=== PATIENT | female | born 1970 | race Caucasian/White ===

== ENCOUNTER → 2018-01-29 | Outpatient (CLI) | payer BC ==
--- NOTE | 2018-01-29 08:02 | MM ---
Reason for exam: additional evaluation requested from abnormal screening. Last mammogram was performed less than 1 month ago. History: Family history of breast cancer in paternal aunt. Took hormonal contraceptives for 1 year. Physical Findings: Nurse did not find any significant physical abnormalities on exam. MG Work Up Mamm w CAD RT Spot compression CC, spot compression MLO, and LM view(s) were taken of the right breast. Prior study comparison: January 18, 2018, bilateral MG screening mammo w CAD. February 05, 2013, bilateral digital screening mammo w/CAD. The breast tissue is heterogeneously dense. This may lower the sensitivity of mammography. Right superior middle depth asymmetry improves on additional views and appears as surrounding fibroglandular tissue. These results were verbally communicated with the patient and result sheet given to the patient on 01/29/18. ASSESSMENT: Negative, BI-RAD 1 RECOMMENDATION: Return to routine screening mammogram schedule for both breasts.
== END | disposition home or self-care (01) ==
LOC: RADMAMWWP 07:09
PROVIDERS: ATTEND Obstetrics & Gynecology
DX: R92.8 Other abnormal and inconclusive findings on diagnostic imaging of breast (principal)
CPT/HCPCS: 77065

== ENCOUNTER → 2019-06-28 | Outpatient (CLI) | payer BC ==
--- NOTE | 2019-07-02 08:20 | MM ---
Reason for exam: screening (asymptomatic). Last mammogram was performed 1 year and 5 months ago. History: Family history of breast cancer in paternal aunt. Took hormonal contraceptives for 1 year. Physical Findings: A clinical breast exam by your physician is recommended on an annual basis and results should be correlated with mammographic findings. MG 3D Screening Mammo W/Cad Bilateral CC and MLO view(s) were taken. Prior study comparison: January 29, 2018, right breast MG work up mamm w CAD RT. January 18, 2018, bilateral MG screening mammo w CAD. The breast tissue is heterogeneously dense. This may lower the sensitivity of mammography. No significant changes when compared with prior studies. ASSESSMENT: Negative, BI-RAD 1 RECOMMENDATION: Routine screening mammogram of both breasts in 1 year.
== END | disposition home or self-care (01) ==
LOC: RADMAMWWP 09:18
PROVIDERS: ATTEND Obstetrics & Gynecology
DX: Z12.31 Encounter for screening mammogram for malignant neoplasm of breast (principal)
CPT/HCPCS: 77063; 77067

== ENCOUNTER → 2021-10-18 | Outpatient (CLI) | payer OTHER ==
--- NOTE | 2021-10-18 14:10 | BD ---
EXAMINATION TYPE: Axial Bone Density DATE OF EXAM: 10/18/2021 COMPARISON: NONE CLINICAL HISTORY: 50 YR OLD FEMALE....ICD-10 CODE: N95.1 MENOPAUSAL Height: 64 Weight: 183 FRAX RISK QUESTIONS: NOTHING TO NOTE HERE RISK FACTORS HISTORY OF: Family History of Osteoporosis: YES, MOTHER NO HIP FX Postmenopausal woman: YES AT 49 YRS OLD Hyperparathyroidism: NO Adrenal Insufficiency: NO MEDICATIONS: Additional Medications: BP MEDS, VIT D AND CALCIUM SUPPLEMENTS, Additional History: HYPERTENSION EXAM MEASUREMENTS: Bone mineral densitometry was performed using the [employer] System. Bone mineral density as measured about the Lumbar spine is: ----- L1-L4(G/cm2): 1.469 T Score Values are as follows: ----- L1: 1.7 ----- L2: 2.6 ----- L3: 2.5 ----- L4: 2.6 ----- L1-L4: 2.4 Bone mineral density FIRST DEXA SCAN......BASELINE STUDY Bone mineral density about the R hip (g/cm2): 1.067 Bone mineral density about the L hip (g/cm2): 1.120 T Score values are as follows: -----R Neck: 0.8 -----L Neck: 0.2 -----R Total: 0.5 -----L Total: 0.9 Bone mineral density FIRST DEXA......BASELINE STUDY FRAX%s: THERE IS A 4.1% CHANCE FOR A MAJOR OSTEOPOROTIC FX AND A 0.1% FOR HIP......PROBABILITY F OR FX IN 10 YRS TIME IMPRESSION: Normal (Values between +1 and -1 indicate normal bone mass). Consider repeating this study in 5 year s or sooner if there is some new clinical indication. NOTE: T-SCORE=SD OF THE YOUNG ADULT MEAN.
--- NOTE | 2021-10-19 08:06 | MM ---
Reason for exam: screening (asymptomatic). Last mammogram was performed 2 years and 4 months ago. History: Patient is postmenopausal. Family history of breast cancer in paternal aunt. Took hormonal contraceptives for 1 year. Physical Findings: A clinical breast exam by your physician is recommended on an annual basis and results should be correlated with mammographic findings. MG 3D Screening Mammo W/Cad Bilateral CC and MLO view(s) were taken. Prior study comparison: June 28, 2019, bilateral MG 3d screening mammo w/cad. January 29, 2018, right breast MG work up mamm w CAD RT. The breast tissue is heterogeneously dense. This may lower the sensitivity of mammography. There are benign appearing round calcifications bilaterally. There is no discrete abnormality. ASSESSMENT: Benign, BI-RAD 2 RECOMMENDATION: Routine screening mammogram of both breasts in 1 year.
== END ==
LOC: RADMAMWWP 10:14
PROVIDERS: ATTEND Obstetrics & Gynecology
DX: Z12.31 Encounter for screening mammogram for malignant neoplasm of breast (principal); Z78.0 Asymptomatic menopausal state; Z80.3 Family history of malignant neoplasm of breast
CPT/HCPCS: 77063; 77067; 77080

== ENCOUNTER → 2023-09-13 | Outpatient (CLI) | payer OTHER ==
--- NOTE | 2023-09-14 08:20 | MM ---
Reason for Exam: Screening (asymptomatic). Last mammogram was performed 1 year(s) and 11 month(s) ago. Patient History: Menarche at age 10. First Full-Term at age 26. Postmenopausal. Patient has history of breast feeding. Patient used Hormonal Contraceptives for 1 year. Paternal aunt had breast cancer. Risk Values: Vivi 5 year model risk: 1.3%. NCI Lifetime model risk: 9.3%. Prior Study Comparison: 01/29/2018 Right Diagnostic Mammogram, [facility]. 06/28/2019 Bilateral Screening Mammogram, [facility]. 10/18/2021 Bilateral Screening Mammogram, [facility]. Tissue Density: The breast tissue is heterogeneously dense. This may lower the sensitivity of mammography. Findings: Analyzed By CAD. There is no suspicious group of microcalcifications or new suspicious mass in either breast. Overall Assessment: Benign, BI-RAD 2 Management: Screening Mammogram of both breasts in 1 year. . Patient should continue monthly self-breast exams. A clinical breast exam by your physician is recommended on an annual basis. This exam should not preclude additional follow-up of suspicious palpable abnormalities. Note on Vivi scores and lifetime risk: 1. A Vivi score greater than 3% is considered moderate risk. If this is the case, consider specialist referral to assess eligibility for a risk reducing agent. 2. If overall lifetime risk for the development of breast cancer is 20% or higher, the patient may qualify for future screening with alternating mammogram and breast MRI. Electronically signed and approved by: Mushtaq Ayon M.D. Radiologis
== END | disposition home or self-care (01) ==
LOC: RADMAMWWP 11:02
PROVIDERS: ATTEND Obstetrics & Gynecology
DX: Z12.31 Encounter for screening mammogram for malignant neoplasm of breast (principal); Z78.0 Asymptomatic menopausal state; Z80.3 Family history of malignant neoplasm of breast; Z92.0 Personal history of contraception
CPT/HCPCS: 77063; 77067

== ENCOUNTER → 2023-10-31 | Outpatient (CLI) | payer OTHER ==
[2023-10-31 19:59] LABS: Basophils # (A) 0.05 X 10*3/uL (0.00-0.10); Basophils % (A) 0.6 %; Eosinophils # (A) 0.02 X 10*3/uL (0.04-0.35); Eosinophils % (A) 0.3 %; HCT 43.9 % (37.2-46.3); HGB 14.3 g/dL (12.0-15.0); Lymphocytes # (A) 1.81 X 10*3/uL (0.90-5.00); Lymphocytes % (A) 23.1 %; MCH 29.3 pg (27.0-32.0); MCHC 32.6 g/dL (32.0-37.0); Mean Platelet Volume 9.7 FL (9.5-12.2); Monocytes # (A) 0.57 X 10*3/uL (0.20-1.00); Monocytes % (A) 7.3 %; NRBC Per 100 WBC 0 X 10*3/uL (0.00-0.01); Neutrophils # (A) 5.34 X 10*3/uL (1.80-7.70); Neutrophils % (A) 68.3 %; Platelet Count 374 X 10*3/uL (140-440); RBC 4.88 X 10*6/uL (4.10-5.20); RDW 13.9 % (11.5-14.5); WBC 7.82 X 10*3/uL (4.50-10.00)
== END | disposition home or self-care (01) ==
LOC: LABPAT 12:08
PROVIDERS: ATTEND Obstetrics & Gynecology
DX: Z01.818 Encounter for other preprocedural examination (principal)
CPT/HCPCS: 36415; 85025; 93005

== ENCOUNTER 2023-11-02 06:22 | Day surgery (SDC) | payer OTHER ==
--- NOTE | 2023-11-01 21:12 | P.HPOB ---
History of Present Illness H&P Date: 11/01/23 Chief Complaint: Postmenopausal bleeding, endometrial thickening This is a 52-year-old female 3 para 3 who presents for dilation and curettage with hysteroscopy due to postmenopausal bleeding and endometrial thickening on ultrasound. Approximately 1 month ago she did have an episode of bleeding that lasted a few days and has stopped. There was no preceding event. She denied any cramping or pain during the bleed. However she does have some cramping now. Her pelvic ultrasound showed a uterus measuring 8.3 x 5 x 3.8 cm with an endometrial thickness of 0.98 cm and a 1 cm simple cyst on the right ovary. Patient's last menstrual period prior to this was April 2021. She does complain of some night sweats and hot flashes. Obstetrical history: G3, P3. History of 3 vaginal deliveries. Gynecologic history: No history of sexually transmitted diseases. Social history: She is . She does work in [employer]. Review of Systems Constitutional: Reports night sweats, Denies chills, Denies fever Eyes: denies blurred vision, denies pain Ears, nose, mouth and throat: Denies headache, Denies sore throat Cardiovascular: Denies chest pain, Denies shortness of breath Respiratory: Denies cough Gastrointestinal: Denies abdominal pain, Denies diarrhea, Denies nausea, Denies vomiting Genitourinary: Reports abnormal vaginal bleeding, Reports pelvic pain (Mild cramping) Menstruation: Reports postmenopausal Musculoskeletal: Denies myalgias Integumentary: Denies pruritus, Denies rash Neurological: Denies numbness, Denies weakness Psychiatric: Reports anxiety, Denies depression Past Medical History Past Medical History: GERD/Reflux, Hypertension Additional Past Medical History / Comment(s): recent post menopausal bleeding, hx of colitis many years ago no issues since History of Any Multi-Drug Resistant Organisms: None Reported Past Surgical History: Adenoidectomy, Tonsillectomy Additional Past Surgical History / Comment(s): colonoscopy Past Anesthesia/Blood Transfusion Reactions: No Reported Reaction Past Psychological History: Anxiety Smoking Status: Never smoker Past Alcohol Use History: Occasional Past Drug Use History: None Reported - Past Family History Father Family Medical History: Cancer Additional Family Medical History / Comment(s): lymph node cancer in neck Medications and Allergies Home Medications Medication Instructions Recorded Confirmed Type Unk Multi Vitamin 1 tab PO DAILY 11/01/23 11/01/23 History Unk Tumeric 1 tab PO DAILY 11/01/23 11/01/23 History Unk Vitamin B12 1 tab PO DAILY 11/01/23 11/01/23 History Unk Vitamin D3 1 tab PO DAILY 11/01/23 11/01/23 History lisinopriL [Zestril] 10 mg PO DAILY 11/01/23 11/01/23 History Allergies Allergy/AdvReac Type Severity Reaction Status Date / Time erythromycin base Allergy stomach Verified 11/01/23 08:10 upset Exam Osteopathic Statement: *. No significant issues noted on an osteopathic structural exam other than those noted in the History and Physical/Consult. Intake and Output 11/01/23 11/01/23 11/01/23 06:59 14:59 22:59 Other: Weight 86.183 kg HEENT: Within normal limits Heart: Regular rate and rhythm Lungs: Clear to auscultation bilaterally Abdomen: Soft, nontender Pelvic exam: Uterus is mid position, with first-degree uterine prolapse and scant bloody discharge noted. No adnexal masses are palpated. First-degree cystocele and rectocele are also noted. Extremities: Negative Homans Assessment and Plan (1) Postmenopausal bleeding Status: Acute Code(s): N95.0 - POSTMENOPAUSAL BLEEDING SNOMED Code(s): 24958389 (2) Endometrial thickening on ultrasound Status: Acute Code(s): R93.89 - ABNORMAL FINDINGS ON DX IMAGING OF OTH BODY STRUCTURES SNOMED Code(s): 513573988 Plan: Proceed with dilation and curettage with hysteroscopy. I have discussed the risks, benefits, and alternative therapies for the above- mentioned procedure and for both sedation/anesthesia as well as necessary blood products administration, if indicated, as they pertain to this patient. The patient has indicated her understanding and acceptance of the risks and procedures discussed.
[~2023-11-02 06:22] MED LIST: LACTATED RINGERS 1,000 ML IV SCH; Pre Op ABX Message 1 EACH MISC MISCELLANE ONE
[2023-11-02] MEDS ORDERED: ONDANSETRON 4 MG/2 ML VIAL ONE (06:51)
[2023-11-02] MEDS ORDERED: ONDANSETRON 4 MG/2 ML VIAL IVP ONE (06:54)
[2023-11-02] MEDS ORDERED: DEXAMETHASONE SOD PHOSPHATE 4 MG/ML 1 ML VIAL IVP ONE (06:54)
[2023-11-02] MEDS ORDERED: MIDAZOLAM 2 MG/2 ML VIAL IVP ONE (06:54)
[2023-11-02] MEDS ORDERED: MIDAZOLAM 2 MG/2 ML VIAL ONE (07:30)
[2023-11-02] MEDS ORDERED: fentaNYL (PF) 50 MCG/ML 2 ML AMP ONE (07:30)
[2023-11-02] MEDS ORDERED: PROPOFOL 10 MG/ML 20 ML VIAL IV ONE (07:30)
[2023-11-02] MEDS ORDERED: LIDOCAINE 1% INJ 10MG/ML (20 ML MDV) ONE (07:30)
[2023-11-02] MEDS ORDERED: KETOROLAC 30 MG/ML 1 ML VIAL ONE (07:30)
--- NOTE | 2023-11-02 07:54 | P.OP ---
Date of Procedure: 11/02/23 Preoperative Diagnosis: Postmenopausal bleeding Endometrial thickening on ultrasound Postoperative Diagnosis: Same Procedure(s) Performed: Dilation and curettage with hysteroscopy Anesthesia: other (Mask General) Surgeon: Whitney Turk Estimated Blood Loss (ml): 5 Pathology: other (Endometrial curettings) Condition: stable Disposition: same day Indications for Procedure: This is a 52-year-old female 3 para 3 who presents for dilation and curettage with hysteroscopy due to postmenopausal bleeding and endometrial thickening on ultrasound. Approximately 1 month ago she did have an episode of bleeding that lasted a few days and has stopped. There was no preceding event. She denied any cramping or pain during the bleed. However she does have some cramping now. Her pelvic ultrasound showed a uterus measuring 8.3 x 5 x 3.8 cm with an endometrial thickness of 0.98 cm and a 1 cm simple cyst on the right ovary. Patient's last menstrual period prior to this was April 2021. She does complain of some night sweats and hot flashes. Operative Findings: Uterus is sounded to 7 cm. Uterus is anteverted with no adnexal masses palpated. Scant endometrial curettings are obtained. A dyssynchronous endometrial pattern with atrophy was noted and both tubal ostia are visualized. Description of Procedure: The patient is taken to the operating room where she is placed in the dorsal lithotomy position. She is prepped and draped in the normal sterile fashion. Uterus was palpated and found to be anteverted with no adnexal masses palpated. Next a weighted speculum was placed in the patient's vagina and a right angle retractor was used to visualize the cervix. The anterior lip of the cervix was grasped with an Allis clamp. The uterus is sounded to 7 cm. Cervix was gently dilated with Tom dilators until a hysteroscope passed. Hysteroscopy was performed using normal saline. The above-noted findings were made and pictures are taken. Hysteroscope was withdrawn. Next a polyp forcep was introduced with minimal tissue obtained. Cervix was gently dilated further and then a medium size sharp curette was introduced and sharp curettage was performed until a gritty texture was noted. Minimal amount of tissue was obtained. Next the Allis clamp was removed and the specimen was removed. No active bleeding was noted. All instruments were removed from the vagina. All sponge and needle counts are correct. The patient is then taken to recovery room in stable condition.
[2023-11-02 08:20] VITALS: TEMP 96.9
[2023-11-02 09:32] VITALS: BP 143/88; PULSE 71; RESP 18
== END 2023-11-02 09:26 | disposition home or self-care (01) ==
LOC: OR 06:22
PROVIDERS: ATTEND Obstetrics & Gynecology
DX: N84.0 Polyp of corpus uteri (principal); N95.0 Postmenopausal bleeding; I10 Essential (primary) hypertension; K21.9 Gastro-esophageal reflux disease without esophagitis; F10.90 Alcohol use, unspecified, uncomplicated; Z88.1 Allergy status to other antibiotic agents; Z90.89 Acquired absence of other organs; Z79.899 Other long term (current) drug therapy; Z80.7 Family history of other malignant neoplasms of lymphoid, hematopoietic and related tissues; Z98.890 Other specified postprocedural states
CPT/HCPCS: 88305; 58558; J2250; J1100; J2405; J2001; J3010; J1885; J2704

== ENCOUNTER → 2024-10-15 | Outpatient (CLI) | payer OTHER ==
--- NOTE | 2024-10-16 09:20 | MM ---
Reason for Exam: Screening (asymptomatic). Last mammogram was performed 1 year(s) and 1 month(s) ago. Patient History: Menarche at age 10. First Full-Term at age 26. Postmenopausal. Patient has history of breast feeding. Patient used Hormonal Contraceptives for 1 year. Currently using Estrogen and Progesterone, starting at age 53. Paternal aunt had breast cancer, age 65. Risk Values: Vivi 5 year model risk: 1.3%. NCI Lifetime model risk: 9.1%. Prior Study Comparison: 06/28/2019 Bilateral Screening Mammogram, [facility]. 10/18/2021 Bilateral Screening Mammogram, [facility]. 09/13/2023 Bilateral MG 3D screening mammo w/cad, [facility]. Tissue Density: The breasts are heterogeneously dense, which may obscure small masses. Findings: Analyzed By CAD. There is new group of indistinct calcifications in the upper outer quadrant right breast anterior to middle depth that warrant further workup. Overall Assessment: Incomplete: need additional imaging evaluation, BI-RAD 0 Management: Diagnostic Mammogram of the right breast. Return for additional spot magnification and 3-D true lateral views right breast. Patient should continue monthly self-breast exams. A clinical breast exam by your physician is recommended on an annual basis. This exam should not preclude additional follow-up of suspicious palpable abnormalities. Note on Vivi scores and lifetime risk: 1. A Vivi score greater than 3% is considered moderate risk. If this is the case, consider specialist referral to assess eligibility for a risk reducing agent. 2. If overall lifetime risk for the development of breast cancer is 20% or higher, the patient may qualify for future screening with alternating mammogram and breast MRI. [facility], , 10/16/2024 9:17 AM. Electronically signed and approved by: Damon Rosenberg M.D.
== END | disposition home or self-care (01) ==
LOC: RADMAMWWP 15:24
PROVIDERS: ATTEND Family Medicine
DX: Z12.31 Encounter for screening mammogram for malignant neoplasm of breast (principal); Z78.0 Asymptomatic menopausal state; Z80.3 Family history of malignant neoplasm of breast; R92.333 Mammographic heterogeneous density, bilateral breasts
CPT/HCPCS: 77063; 77067

== ENCOUNTER → 2024-10-18 | Outpatient (CLI) | payer OTHER ==
--- NOTE | 2024-10-18 11:03 | MM ---
Reason for Exam: Follow-up at short interval from prior study. Last screening mammogram was performed less than 1 month ago. Patient History: Menarche at age 10. First Full-Term at age 26. Postmenopausal. Patient has history of breast feeding. Patient used Hormonal Contraceptives for 1 year. Currently using Estrogen and Progesterone, starting at age 53. Paternal aunt had breast cancer, age 65. Risk Values: Vivi 5 year model risk: 1.3%. NCI Lifetime model risk: 9.1%. Tissue Density: Right: The breasts are heterogeneously dense, which may obscure small masses. Findings: Analyzed By CAD. There is a persistent group of heterogeneous new calcifications measuring 3 mm length on additional views best seen on spot magnification CC view. Overall Assessment: Suspicious, BI-RAD 4 Management: Stereotactic Core Biopsy of the right breast. . Results were given to the patient verbally at the time of exam. Patient should continue monthly self-breast exams. A clinical breast exam by your physician is recommended on an annual basis. This exam should not preclude additional follow-up of suspicious palpable abnormalities. Note on Vivi scores and lifetime risk: 1. A Vivi score greater than 3% is considered moderate risk. If this is the case, consider specialist referral to assess eligibility for a risk reducing agent. 2. If overall lifetime risk for the development of breast cancer is 20% or higher, the patient may qualify for future screening with alternating mammogram and breast MRI. [facility], , 10/18/2024 11:00 AM. Electronically signed and approved by: Damon Rosenberg M.D.
== END | disposition home or self-care (01) ==
LOC: RADMAMWWP 10:31
PROVIDERS: ATTEND Family Medicine
DX: R92.8 Other abnormal and inconclusive findings on diagnostic imaging of breast (principal); Z78.0 Asymptomatic menopausal state; Z80.3 Family history of malignant neoplasm of breast; R92.331 Mammographic heterogeneous density, right breast
CPT/HCPCS: 77061; 77065

== ENCOUNTER → 2025-01-16 | Outpatient (CLI) | payer OTHER ==
[2025-01-16 14:17] VITALS: BP 144/84; PULSE 79; RESP 17; TEMP 97.9
--- NOTE | 2025-01-16 15:14 | P.GSCN ---
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 The patient underwent a bilateral screening mammogram on 10-15-2024. This revealed heterogeneously dense breast with a questionable area of indistinct calcifications in the upper outer quadrant of the right breast. A diagnostic right breast mammogram was recommended. This was performed on 2 on 10-18-2024. This revealed a persistent group Junious new calcifications measuring 3 mm in length and a stereotactic core biopsy was recommended. Stereotactic core biopsy was performed on 11 07 24. This was a routine mammogram. She gets them every year. She did not feel anything of concern in either breast. She has not had any surgery on her breast in the past. She is not complaining of any nipple discharge or skin changes. She has not had any recent trauma or infection in the breast. Caffeine: occasional nicotine: none chocolate: daily BCP: used for about 10 years in remote past hormones: used estrogen patch and progesterone pill; stopped when noted to have a mammographic abnormality [facility] risk: lifetime risk: 58.2% Family History: father: lymphoma paternal aunt: breast cancer Hormonal History: menarche: 11 , breast fed: no, age at first : 26 menopause: 47 Surgical History: tonsil D&C Medical history: HTN Social History: nicotine: none alcohol: occasional drugs: none Review of Systems - Constitutional Denies fever, Denies weight loss - EENT Eyes: denies blurred vision Ears: deny: decreased hearing, tinnitus Ears, nose, mouth and throat: Denies dysphagia - Breasts bilateral: as per HPI - Cardiovascular Denies chest pain, Denies shortness of breath - Respiratory Denies cough, Denies 7 - Gastrointestinal Reports as per HPI - Genitourinary Genitourinary: Denies dysuria, Denies hematuria Menstruation: Reports as per HPI - Musculoskeletal Reports as per HPI - Integumentary Denies rash, Denies unusual bruising - Neurological Denies headaches, Denies syncope - Psychiatric Reports as per HPI, Reports anxiety - Endocrine Reports as per HPI - Hematologic/Lymphatic Denies easy bleeding, Denies easy bruising - Allergic/Immunologic Reports as per HPI, Reports seasonal allergies Past Medical History Past Medical History: GERD/Reflux, Hypertension Additional Past Medical History / Comment(s): recent post menopausal bleeding, hx of colitis many years ago no issues since History of Any Multi-Drug Resistant Organisms: None Reported Past Surgical History: Adenoidectomy, Tonsillectomy Additional Past Surgical History / Comment(s): colonoscopy. Dilatation and currettage 2023 Past Anesthesia/Blood Transfusion Reactions: No Reported Reaction Past Psychological History: Anxiety Smoking Status: Never smoker Past Alcohol Use History: Occasional Past Drug Use History: None Reported - Past Family History Father Family Medical History: Cancer Additional Family Medical History / Comment(s): lymph node cancer in neck Medications and Allergies Home Medications Medication Instructions Recorded Confirmed Type Unk Multi Vitamin 1 tab PO DAILY 11/01/23 10/21/24 History Unk Tumeric 1 tab PO DAILY 11/01/23 10/21/24 History Unk Vitamin B12 1 tab PO DAILY 11/01/23 11/07/24 History Unk Vitamin D3 1 tab PO DAILY 11/01/23 11/07/24 History lisinopriL [Zestril] 10 mg PO DAILY 11/01/23 11/07/24 History buPROPion HCL [Wellbutrin XL] 150 mg PO DAILY 10/21/24 11/07/24 History Allergies Allergy/AdvReac Type Severity Reaction Status Date / Time erythromycin base Allergy stomach Verified 11/07/24 10:15 upset Surgical - Exam - General no distress - Eyes normal ocular movement - Neck trachea midline - Respiratory normal respiratory effort, clear to auscultation - Cardiovascular Rhythm: regular Heart Sounds: normal: S1, S2 - Abdomen Abdomen: soft, non tender, no guarding, no rigid, no rebound - Integumentary normal turgor - Neurologic no disoriented, no combative - Musculoskeletal normal gait - Psychiatric oriented to time, oriented to person, oriented to place, speech is normal, memory intact Breast Exam: BRA: 36A Inspection: Grade 2 ptosis Palpation: Right breast: Multi positional exam no dominant masses or nodules of concern, biopsy site clean and dry no evidence of hematoma or infection Right axilla: No adenopathy of concern Left breast: Multi positional exam no dominant masses or nodules of concern Left axilla: No adenopathy of concern Results Mammogram and stereotactic core biopsy tissue graft personally reviewed and discussed with Dr. Avalos from radiology Assessment and Plan Assessment: Impression: Right breast stereotactic core biopsy LCIS/atypical lobular hyperplasia Patient approximately a year ago started on hormone replacement therapy and this was stopped in October 2024 Family history of cancer/father lymphoma Plan: 1. Genetic testing 2. Appointment medical oncology to consider chemoprevention 3. Presentation of case at tumor board We have discussed 2 aspects of the diagnosis. We have discussed the aspect of the immediate finding in the proximity of the LCIS/atypical lobular hyperplasia to potential other disease in the immediate vicinity of the biopsy. It appears that radiographically the area has been completely removed and the patient is given the option of close surveillance. The alternative would be needle localization and resection of this area to assure that there is no other LCIS or atypical lobular hyperplasia in the region or any invasive disease. We have discussed the increased risk of breast cancer globally and risk reduction strategies: 1. Close surveillance with yearly MRI and mammogram and evaluation every 6 months 2. I would recommend that she stop supplemental hormone replacement 3. Appointment with medical oncology to consider chemoprevention 4. We have discussed but I have not recommended bilateral mastectomy plus or minus immediate reconstruction The patient understands the risks and benefits and at this time she is awaiting presentation of the case at tumor board and appointment with medical oncology. In the interim she is going to have close surveillance. This would entail yearly MRI this will be ordered at this time with yearly mammograms alternating every 6 months and I will see her for her MRI is done. CC: Dr. Daniel
== END ==
LOC: WWCWWP 13:53
PROVIDERS: ATTEND Surgery
DX: C50.911 Malignant neoplasm of unspecified site of right female breast (principal); N60.91 Unspecified benign mammary dysplasia of right breast; Z79.890 Hormone replacement therapy; Z80.3 Family history of malignant neoplasm of breast; Z88.1 Allergy status to other antibiotic agents